=== PATIENT | female | born 2000 | race Hispanic/Latino ===

== ENCOUNTER 2023-08-21 03:43 | Day surgery (SDC) | payer OTHER, SELFPAY ==
[2023-08-21 04:25] VITALS: BMI 34.9
[2023-08-21] MEDS ORDERED: hydrALAZINE 20 MG/ML VIAL SLOW IVP PRN (04:34)
[2023-08-21 05:45] LABS: Bilirubin 1+ (Negative); Blood, Urine Negative (Negative); Clarity Slightly Cloudy (Clear); Glucose, Urine (Dipstick) Normal (Negative); Ketone, Urine 5 mg/dL (Negative); Leukocyte 25 (Negative); Nitrite Negative (Negative); Protein, Urine (Dipstick) 30 mg/dl (Neg-Trace); Specific Gravity, Urine 1.015 (1.005-1.030); Urobilinogen 12 mg/dL (Less than 2)
[2023-08-21 06:00] LABS: CAUTI Indications for Culture Pelvic or flank pain; RBC/HPF None Seen HPF (0-3)
[2023-08-21] MEDS ORDERED: Ondansetron ODT 4 MG TAB PO SCH (06:00)
[2023-08-21 06:01] LABS: Bacteria/HPF Rare-Few HPF (None Seen)
[2023-08-21 06:02] LABS: Urine Culture Reflex No No
[2023-08-21 07:56] LABS: #Eosinphils 0.1 10x3/uL (0.0-0.5); #Monocytes 0.6 10x3/uL (0.0-1.1); #Neutrophils 3.5 10x3/uL (1.5-8.4); %Basophils 0.2 % (0.0-2.0); %Eosinophils 0.9 % (0.0-6.0); %Monocytes 11.8 % (0.0-10.0); %Neutrophils 63.9 % (40.0-75.0); Hematocrit 35.8 % (34.9-44.5); Hemoglobin 11.6 g/dL (12.0-15.5); Mean Corpuscular HGB CONC 32.4 g/dL (32.0-36.0); Mean Corpuscular Volume 80.3 fl (81.6-98.3); Mean Platelet Volume 9.8 fl (7.4-10.4); Platelet Count 206 10x3/uL (150-450); RBC Distribution Width 13.2 % (11.5-14.5); Red Blood Cell (RBC) Count 4.46 10x6/uL (3.90-5.03); White Blood Cell (WBC) Count 5.4 10x3/uL (3.5-10.5)
[2023-08-21 08:13] LABS: ALT (SGPT) 10 U/L (8-55); AST (SGOT) 20 U/L (5-34); Albumin 3.5 g/dL (3.5-5.0); Alkaline Phosphatase 117 U/L (40-110); Anion Gap 16 mmol/L (10-20); BUN (Urea Nitrogen) 4 mg/dL (7.0-18.7); Bilirubin, Total 0.4 mg/dL (0.2-1.2); Calc. Creatinine Clearance 193 mL/min (70-130); Calcium 9.2 mg/dL (7.8-10.44); Carbon Dioxide 21 mmol/L (22-29); Chloride 104 mmol/L (98-107); Estimated GFR 128; Globulin 3.4 g/dL (2.4-3.5); Glucose 75 mg/dL (70-105); Lipase 36 U/L (8-78); Potassium 4.2 mmol/L (3.5-5.1); Protein, Total 6.9 g/dL (6.0-8.3); Sodium 137 mmol/L (136-145)
== END 2023-08-21 09:25 | disposition home or self-care (01) ==
LOC: CSHLD/OP 03:43
PROVIDERS: ATTEND Student in an Organized Health Care Education/Training Program
DX: O99.891 Other specified diseases and conditions complicating pregnancy (principal); R10.9 Unspecified abdominal pain; O99.213 Obesity complicating pregnancy, third trimester; E66.9 Obesity, unspecified; O21.2 Late vomiting of pregnancy; Z79.899 Other long term (current) drug therapy; Z90.49 Acquired absence of other specified parts of digestive tract; Z91.018 Allergy to other foods; Z3A.36 36 weeks gestation of pregnancy
CPT/HCPCS: 36415; 80053; 81001; 83690; 84443; 85025; 99283; Q0162

== ENCOUNTER 2023-09-17 05:00 | Inpatient (IN) | payer OTHER ==
[2023-09-17] MEDS ORDERED: Bupivacaine 0.25% HCL 30 ML VIAL ONE (18:08)
[2023-09-17] MEDS ORDERED: Carboprost 250 MCG/ML AMP IM PRN (21:51)
[2023-09-17] MEDS ORDERED: Acetaminophen 500 MG TAB PO PRN (21:51)
[2023-09-17] MEDS ORDERED: Ondansetron PF 4 MG/2 ML Vial IVP PRN (21:51)
[2023-09-17] MEDS ORDERED: Tranexamic Acid 1,000 MG/10 ML VIAL IVP PRN (21:51)
[2023-09-17] MEDS ORDERED: Lidocaine 1% (PF) 30 ML VIAL SC PRN (21:51)
[2023-09-17] MEDS ORDERED: Ibuprofen 800 MG TAB PO PRN (21:51)
[2023-09-17] MEDS ORDERED: Promethazine HCl 25 MG/ML VIAL IM PRN (21:51)
[2023-09-17] MEDS ORDERED: Misoprostol 200 MCG TAB PR PRN (21:51)
[2023-09-17] MEDS ORDERED: Methylergonovine 0.2 MG/ML VIAL IM PRN (21:51)
[2023-09-17] MEDS ORDERED: hydrALAZINE 20 MG/ML VIAL SLOW IVP PRN (21:51)
[2023-09-17] MEDS ORDERED: Docusate 100 MG CAP PO PRN (21:51)
[2023-09-17] MEDS ORDERED: Misoprostol 100 MCG TAB VAG SCH (22:00)
[2023-09-17] MEDS ORDERED: Oxytocin 30 units/NS 500 ML 500 ML IV SCH ×2 (22:00)
[2023-09-17 22:09] LABS: Hematocrit 34.8 % (34.9-44.5); Hemoglobin 11.1 g/dL (12.0-15.5); Mean Corpuscular HGB CONC 31.9 g/dL (32.0-36.0); Mean Corpuscular Hemoglobin 24.9 pg (27.0-33.0); Mean Platelet Volume 10.5 fl (7.4-10.4); Platelet Count 274 10x3/uL (150-450); RBC Distribution Width 13.9 % (11.5-14.5); Red Blood Cell (RBC) Count 4.46 10x6/uL (3.90-5.03); White Blood Cell (WBC) Count 10.7 10x3/uL (3.5-10.5)
[2023-09-17] MEDS: Lactated Ringer's 1,000 ML IV SCH (22:49)
[2023-09-17 22:56] LABS: HBSAg Index 0.14 S/CO (0-0.99); Hep B Surf Ag - L&D Non-Reactive S/CO (NonReactive)
[2023-09-17 22:57] LABS: Syphilis Antibody Nonreactive (Nonreactive); Syphilis Antibody Index 0.04 S/CO (<1.00 Non-Reactive)
[2023-09-18] MEDS: Misoprostol 100 MCG TAB PO SCH ×4 (01:58→19:30)
[2023-09-18] MEDS: fentaNYL 50 mcg/mL 1 mL Vial SLOW IVP PRN ×2 (08:25→13:00)
[2023-09-18 09:28] VITALS: BMI 35.4
[2023-09-18] MEDS ORDERED: fentaNYL/Ropivacaine Epidural 100 ML ONE (13:08)
[2023-09-18] MEDS ORDERED: Lactated Ringer's 500 ML IV PRN (13:40)
[2023-09-18] MEDS ORDERED: Moisturizing Cream (Eucerin) 113 GM JAR TOP PRN (13:40)
[2023-09-18] MEDS ORDERED: Acetaminophen 325 MG TAB PO PRN (13:40)
[2023-09-18] MEDS ORDERED: Ondansetron PF 4 MG/2 ML Vial IVP PRN (13:40)
[2023-09-18] MEDS ORDERED: ePHEDrine Sulfate 50 MG/10 ML VIAL SLOW IVP PRN (13:40)
[2023-09-18] MEDS ORDERED: Naloxone HCl 0.4 mg/ml Vial IVP PRN ×2 (13:40)
[2023-09-18] MEDS ORDERED: Promethazine HCl 25 MG/ML VIAL IM PRN (13:40)
[2023-09-18] MEDS ORDERED: diphenhydrAMINE 50 MG/ML VIAL IVP PRN (13:40)
[2023-09-18] MEDS ORDERED: Communication Order-Pharmacy FS SCH (13:45)
[2023-09-18] MEDS ORDERED: fentaNYL 2 mcg/Ropivacaine 0.2% Epidural 100 ML CADD EPIDURAL SCH (13:45)
[2023-09-18] MEDS: Misoprostol 100 MCG TAB VAG SCH ×2 (19:28→19:29)
[2023-09-18] MEDS: Lactated Ringer's 1,000 ML IV SCH (19:29)
[2023-09-19] MEDS ORDERED: Oxytocin 30 units/NS 500 ML 500 ML IV SCH (03:24)
[2023-09-19] MEDS ORDERED: Misoprostol 200 MCG TAB VAG PRN (03:24)
[2023-09-19] MEDS ORDERED: hydrALAZINE 20 MG/ML VIAL SLOW IVP PRN (03:24)
[2023-09-19] MEDS ORDERED: Methylergonovine 0.2 MG/ML VIAL IM PRN (03:24)
[2023-09-19] MEDS ORDERED: Preparation H Ointment 28 GM TUBE PR PRN (03:24)
[2023-09-19] MEDS ORDERED: Boostrix 0.5 ML (Tdap) VIAL (>/=7 yrs of age) IM ONE (03:24)
[2023-09-19] MEDS ORDERED: Bisacodyl 10 MG SUPP PR PRN (03:24)
[2023-09-19] MEDS ORDERED: Ondansetron PF 4 MG/2 ML Vial IVP PRN (03:24)
[2023-09-19] MEDS ORDERED: Lanolin Ointment 7 GM TUBE TOP PRN (03:24)
[2023-09-19] MEDS ORDERED: Milk Of Magnesia 30 ML UDCUP PO PRN (03:24)
[2023-09-19] MEDS ORDERED: diphenhydrAMINE 25 MG CAP PO PRN (03:24)
[2023-09-19] MEDS ORDERED: Benzocaine-Menthol 82.5 ML CAN TOP PRN (03:24)
[2023-09-19] MEDS: Ibuprofen 800 MG TAB PO SCH ×3 (05:09→21:56)
[2023-09-19] MEDS: Ferrous Sulfate 325 MG TAB PO SCH (07:28)
[2023-09-19] MEDS: Prenatal Vitamin 1 TAB PO SCH (09:21)
[2023-09-19] MEDS: Docusate 100 MG CAP PO SCH ×2 (09:21→21:56)
[2023-09-20] MEDS: Ibuprofen 800 MG TAB PO SCH (04:55)
[2023-09-20] MEDS: Prenatal Vitamin 1 TAB PO SCH ×2 (08:15→08:17)
[2023-09-20] MEDS: Docusate 100 MG CAP PO SCH (08:17)
[2023-09-20] MEDS: Ferrous Sulfate 325 MG TAB PO SCH (08:55)
[2023-09-20 08:58] VITALS: BP 114/70; TEMP 97.9
== END 2023-09-20 13:00 | disposition home or self-care (01) | DRG 807 ==
LOC: CSHLD 19:56 → CSHPP 09-19 01:20
PROVIDERS: ADMIT Obstetrics & Gynecology; ATTEND Obstetrics & Gynecology
PROC: 10H07YZ Insertion of Other Device into Products of Conception, Via Natural or Artificial Opening (ICD-10-PCS; principal; 2023-09-18)
PROC: 10E0XZZ Delivery of Products of Conception, External Approach (ICD-10-PCS; 2023-09-18)
PROC: 0UQMXZZ Repair Vulva, External Approach (ICD-10-PCS; 2023-09-18)
DX: O48.0 Post-term pregnancy (principal); Z37.0 Single live birth; Z3A.40 40 weeks gestation of pregnancy; Z90.49 Acquired absence of other specified parts of digestive tract; Z79.899 Other long term (current) drug therapy; Z91.018 Allergy to other foods; O99.214 Obesity complicating childbirth; O76 Abnormality in fetal heart rate and rhythm complicating labor and delivery; O70.0 First degree perineal laceration during delivery
CPT/HCPCS: 51702; 85027; 86780; 86850; 86900; 86901; 87340; J2590; J3010; J7120; S0020

== ENCOUNTER 2024-11-16 12:35 | Day surgery (SDC) | payer OTHER ==
[2024-11-16 13:05] VITALS: BMI 37.0
[2024-11-16] MEDS ORDERED: hydrALAZINE 20 MG/ML VIAL SLOW IVP PRN (13:15)
== END 2024-11-16 15:15 | disposition home or self-care (01) ==
LOC: CSHLD/OP 12:35 → MERGE 12:35 → CSHLD/OP 15:15
PROVIDERS: ATTEND Emergency Medicine
DX: O36.8130 Decreased fetal movements, third trimester, not applicable or unspecified (principal); O99.213 Obesity complicating pregnancy, third trimester; O99.283 Endocrine, nutritional and metabolic diseases complicating pregnancy, third trimester; E21.3 Hyperparathyroidism, unspecified; O99.013 Anemia complicating pregnancy, third trimester; Z90.49 Acquired absence of other specified parts of digestive tract; Z3A.39 39 weeks gestation of pregnancy; Z91.018 Allergy to other foods
CPT/HCPCS: 59025; 76819; 99282

== ENCOUNTER 2024-11-21 07:31 | Inpatient (IN) | payer OTHER ==
[2024-11-21] MEDS ORDERED: hydrALAZINE 20 MG/ML VIAL SLOW IVP PRN (08:50)
[2024-11-21] MEDS ORDERED: Ondansetron PF 4 MG/2 ML Vial IVP PRN ×2 (08:50→09:29)
[2024-11-21] MEDS ORDERED: Lidocaine 1% (PF) 30 ML VIAL SC PRN (08:50)
[2024-11-21] MEDS ORDERED: Promethazine HCl 25 MG/ML VIAL IM PRN ×2 (08:50→09:29)
[2024-11-21] MEDS ORDERED: Oxytocin 30 units/NS 500 ML 500 ML IV SCH (09:00)
[2024-11-21] MEDS ORDERED: Lactated Ringer's 1,000 ML IV SCH (09:00)
[2024-11-21 09:13] LABS: Hematocrit 37.9 % (34.9-44.5); Hemoglobin 11.3 g/dL (12.0-15.5); Mean Corpuscular HGB CONC 29.8 g/dL (32.0-36.0); Mean Corpuscular Hemoglobin 22.7 pg (27.0-33.0); Mean Corpuscular Volume 76.1 fL (81.6-98.3); Mean Platelet Volume 9.5 fL (7.4-10.4); Platelet Count 243 10x3/uL (150-450); RBC Distribution Width 26.5 % (11.5-14.5); Red Blood Cell (RBC) Count 4.98 10x6/uL (3.90-5.03); White Blood Cell (WBC) Count 7.73 10x3/uL (3.5-10.5)
[2024-11-21] MEDS ORDERED: diphenhydrAMINE 50 MG/ML VIAL IVP PRN (09:29)
[2024-11-21] MEDS ORDERED: Acetaminophen 325 MG TAB PO PRN (09:29)
[2024-11-21] MEDS ORDERED: Lactated Ringer's 500 ML IV PRN (09:29)
[2024-11-21] MEDS ORDERED: ePHEDrine Sulfate 50 MG/10 ML VIAL SLOW IVP PRN (09:29)
[2024-11-21] MEDS ORDERED: Naloxone HCl 0.4 mg/ml Vial IVP PRN ×2 (09:29)
[2024-11-21] MEDS ORDERED: Moisturizing Cream (Eucerin) 113 GM JAR TOP PRN (09:29)
[2024-11-21] MEDS ORDERED: Communication Order-Pharmacy FS SCH (09:30)
[2024-11-21] MEDS ORDERED: fentaNYL 2 mcg/Ropivacaine 0.2% Epidural 100 ML CADD EPIDURAL SCH (09:30)
[2024-11-21 09:40] LABS: HBsAg Index 0.26 S/CO (0-0.99); HIV (1/2) Antibody/Antigen Non-Reactive (NonReactive); HIV 1/2 INDEX 0.09 S/CO (<1.00); Hep B Surf Ag - L&D Non-Reactive S/CO (NonReactive)
[2024-11-21 09:41] LABS: Syphilis Antibody Nonreactive (Nonreactive); Syphilis Antibody Index 0.03 S/CO (<1.00 Non-Reactive)
[2024-11-21] MEDS: Ibuprofen 800 MG TAB PO PRN (14:08)
[2024-11-21] MEDS ORDERED: Methylergonovine 0.2 MG TAB PO PRN (15:31)
[2024-11-21] MEDS ORDERED: Milk Of Magnesia 30 ML UDCUP PO PRN (15:31)
[2024-11-21] MEDS ORDERED: diphenhydrAMINE 25 MG CAP PO PRN (15:31)
[2024-11-21] MEDS ORDERED: Methylergonovine 0.2 MG/ML VIAL IM PRN (15:31)
[2024-11-21] MEDS ORDERED: Preparation H Ointment 28 GM TUBE PR PRN (15:31)
[2024-11-21] MEDS ORDERED: Bisacodyl 10 MG SUPP PR PRN (15:31)
[2024-11-21] MEDS ORDERED: Lanolin Ointment 7 GM TUBE TOP PRN (15:31)
[2024-11-21] MEDS ORDERED: Misoprostol 200 MCG TAB VAG PRN (15:31)
[2024-11-21] MEDS: fentaNYL/Ropivacaine Epidural 100 ML ONE (15:52)
[2024-11-21] MEDS: Ferrous Sulfate 325 MG TAB PO SCH (16:46)
[2024-11-21] MEDS: Docusate 100 MG CAP PO SCH (21:18)
[2024-11-21] MEDS: Ibuprofen 800 MG TAB PO SCH (21:19)
[2024-11-22 04:18] LABS: Hematocrit 29.1 % (34.9-44.5); Hemoglobin 8.7 g/dL (12.0-15.5); Mean Corpuscular HGB CONC 29.9 g/dL (32.0-36.0); Mean Corpuscular Hemoglobin 22.9 pg (27.0-33.0); Mean Corpuscular Volume 76.6 fL (81.6-98.3); Mean Platelet Volume 9.7 fL (7.4-10.4); Platelet Count 233 10x3/uL (150-450); RBC Distribution Width 26.7 % (11.5-14.5); White Blood Cell (WBC) Count 9.45 10x3/uL (3.5-10.5)
[2024-11-22 07:45] VITALS: TEMP 97.8
[2024-11-22] MEDS: Prenatal Vitamin 1 TAB PO SCH (09:12)
[2024-11-22] MEDS: Ferrous Sulfate 325 MG TAB PO SCH (09:13)
[2024-11-22 11:01] VITALS: BP 124/64
[2024-11-22 11:33] LABS: Hematocrit 32.4 % (34.9-44.5); Hemoglobin 9.6 g/dL (12.0-15.5)
[2024-11-22] MEDS ORDERED: Bupivacaine 0.25% HCL 30 ML VIAL ONE (13:00)
== END 2024-11-22 15:10 | disposition home or self-care (01) | DRG 807 ==
LOC: CSHLD 07:31 → CSHPP 15:36 → EDUNIT# 19:00
PROVIDERS: ADMIT Obstetrics & Gynecology; ATTEND Obstetrics & Gynecology
PROC: 10E0XZZ Delivery of Products of Conception, External Approach (ICD-10-PCS; principal; 2024-11-21)
PROC: 3E0S3BZ Introduction of Anesthetic Agent into Epidural Space, Percutaneous Approach (ICD-10-PCS; 2024-11-21)
DX: O48.0 Post-term pregnancy (principal); Z37.0 Single live birth; Z3A.40 40 weeks gestation of pregnancy; O99.214 Obesity complicating childbirth; O99.284 Endocrine, nutritional and metabolic diseases complicating childbirth; O99.02 Anemia complicating childbirth; E05.80 Other thyrotoxicosis without thyrotoxic crisis or storm; D50.9 Iron deficiency anemia, unspecified
CPT/HCPCS: 36415; 51702; 85027; 86780; 86850; 86900; 86901; 87340; 87389; J0665

== ENCOUNTER 2025-11-02 09:16 | Emergency (ER) | payer OTHER ==
[2025-11-02] MEDS ORDERED: Ondansetron PF 4 MG/2 ML Vial ONE (09:41)
[2025-11-02] MEDS ORDERED: Ketorolac Tromethamine 30 MG (1 mL) VIAL ONE (09:41)
[2025-11-02 09:47] LABS: #Basophils 0.03 10x3/uL (0.0-0.2); #Eosinophils 0.14 10x3/uL (0.0-0.5); #Monocytes 0.46 10x3/uL (0.0-1.1); #Neutrophils 3.36 10x3/uL (1.5-8.4); %Basophils 0.5 % (0.0-2.0); %Eosinophils 2.1 % (0.0-6.0); %Lymphocytes 38.9 % (18.0-47.0); %Monocytes 7.0 % (0.0-10.0); %Neutrophils 51.3 % (40.0-75.0); Hematocrit 40.7 % (34.9-44.5); Hemoglobin 13.6 g/dL (12.0-15.5); Mean Corpuscular Hemoglobin 27.6 pg (27.0-33.0); Mean Corpuscular Volume 82.7 fL (81.6-98.3); Platelet Count 273 10x3/uL (150-450); Red Blood Cell (RBC) Count 4.92 10x6/uL (3.90-5.03); White Blood Cell (WBC) Count 6.55 10x3/uL (3.5-10.5)
[2025-11-02 09:56] LABS: BHCG - Serum Negative (NEGATIVE); Pregs Control Background? CLEAR/WHITE (CLR/WHITE); Pregs Control Bar Appear? YES (CONTROL BAR)
[2025-11-02 10:03] LABS: ALT (SGPT) 70 U/L (Less than 34); AST (SGOT) 56 U/L (11-34); Albumin 4.1 g/dL (3.1-4.5); Alkaline Phosphatase 59 U/L (40-110); Anion Gap 12 mmol/L (10-20); BUN (Urea Nitrogen) 12 mg/dL (7.0-18.7); Bilirubin, Total 0.4 mg/dL (0.3-1.2); Calc. Creatinine Clearance 0 mL/min (70-130); Calcium 9.4 mg/dL (7.8-10.44); Carbon Dioxide 22 mmol/L (22-29); Chloride 105 mmol/L (98-107); Globulin 3.4 g/dL (2.4-3.5); Glucose 103 mg/dL (70-105); Lipase 15 U/L (8-78); Potassium 4.1 mmol/L (3.5-5.1); Sodium 135 mmol/L (136-145)
[2025-11-02 11:58] LABS: Glucose, Urine (Dipstick) Normal (Negative); Leukocyte 500 (Negative); Protein, Urine (Dipstick) Negative (Neg-Trace); Specific Gravity, Urine 1.005 (1.005-1.030)
[2025-11-02 12:07] LABS: Bacteria/HPF 1+ HPF (None Seen); CAUTI Indications for Culture Pelvic or flank pain; Mucous/LPF 1+ LPF (<2+); RBC/HPF 0-3 HPF (0-3); Urine Culture Reflex No No
== END 2025-11-02 13:20 | disposition home or self-care (01) ==
LOC: CSHERS 09:16
DX: N83.201 Unspecified ovarian cyst, right side (principal); N83.202 Unspecified ovarian cyst, left side; N20.0 Calculus of kidney
CPT/HCPCS: 74176; 76856; 80053; 81001; 83690; 84703; 85025; 93976; 96374; 96375; J1885; J2405